=== PATIENT | female | born 1970 | race Caucasian/White ===

== ENCOUNTER 2023-02-18 06:37 | Day surgery (SDC) | payer OTHER ==
[~2023-02-18] VITALS: Ht 157.5 cm; Wt 119.7 kg
[2023-02-18] MEDS ORDERED: diphenhydrAMINE 50 MG/ML VIAL ONE (07:51)
[2023-02-18] MEDS ORDERED: LIDOCAINE 2% 100 MG/5 ML UJET TP ONE (07:52)
[2023-02-18] MEDS ORDERED: MIDAZOLAM 5 MG/5 ML VIAL ONE (07:52)
[2023-02-18] MEDS ORDERED: fentaNYL citrate 0.05 MG/ML VIAL ONE (07:52)
[2023-02-18] MEDS ORDERED: fentaNYL citrate 0.05 MG/ML VIAL IVP ONE (08:35)
[2023-02-18] MEDS ORDERED: MIDAZOLAM 5 MG/5 ML VIAL IV ONE (08:35)
[2023-02-18] MEDS ORDERED: diphenhydrAMINE 50 MG/ML VIAL IVP ONE (08:35)
== END 2023-02-18 09:00 | disposition home or self-care (01) ==
LOC: MDS 06:37 → MMU 06:37 → MDS 09:00
PROVIDERS: ATTEND Internal Medicine Gastroenterology
DX: Z12.11 Encounter for screening for malignant neoplasm of colon (principal); K63.5 Polyp of colon; K57.30 Diverticulosis of large intestine without perforation or abscess without bleeding; I10 Essential (primary) hypertension; Z79.899 Other long term (current) drug therapy
CPT/HCPCS: 45385; J1200; J2250; J3010